=== PATIENT | female | born 1955 | race Caucasian/White ===

== ENCOUNTER → 2023-07-29 06:13 | Outpatient (REF) | payer BC, SELFPAY ==
[2023-07-29 09:49] LABS: INR 2.66; PT 28.3 Sec (11.4-14.6)
== END ==
LOC: HWLAB 06:13
PROVIDERS: ATTENDING PHYSICIAN Internal Medicine; FAMILY PHYSICIAN Internal Medicine Geriatric Medicine
DX: I48.91 Unspecified atrial fibrillation (principal)
CPT/HCPCS: 36415; 85610

== ENCOUNTER → 2023-08-26 06:12 | Outpatient (REF) | payer MEDICARE, OTHER, SELFPAY ==
[2023-08-26 10:16] LABS: INR 2.76; PT 29.1 Sec (11.4-14.6)
== END ==
LOC: HWLAB 06:12
PROVIDERS: ATTENDING PHYSICIAN Internal Medicine; FAMILY PHYSICIAN Internal Medicine Geriatric Medicine
DX: I48.91 Unspecified atrial fibrillation (principal)
CPT/HCPCS: 36415; 85610

== ENCOUNTER → 2023-09-27 06:07 | Outpatient (REF) | payer MEDICARE, OTHER, SELFPAY ==
[2023-09-27 10:29] LABS: INR 3.19; PT 32.6 Sec (11.4-14.6)
== END ==
LOC: HWLAB 06:07
PROVIDERS: ATTENDING PHYSICIAN Internal Medicine; FAMILY PHYSICIAN Internal Medicine Geriatric Medicine
DX: I48.91 Unspecified atrial fibrillation (principal)
CPT/HCPCS: 85610

== ENCOUNTER → 2023-10-04 06:06 | Outpatient (REF) | payer MEDICARE, OTHER, SELFPAY ==
[2023-10-04 10:15] LABS: INR 2.84; PT 29.7 Sec (11.4-14.6)
== END ==
LOC: HWLAB 06:06
PROVIDERS: ATTENDING PHYSICIAN Internal Medicine; FAMILY PHYSICIAN Internal Medicine Geriatric Medicine
DX: I48.91 Unspecified atrial fibrillation (principal)
CPT/HCPCS: 36415; 85610

== ENCOUNTER → 2023-11-01 06:03 | Outpatient (REF) | payer MEDICARE, OTHER, SELFPAY ==
[2023-11-01 09:11] LABS: INR 3.15; PT 32.3 Sec (11.4-14.6)
== END ==
LOC: HWLAB 06:03
PROVIDERS: ATTENDING PHYSICIAN Internal Medicine; FAMILY PHYSICIAN Internal Medicine Geriatric Medicine
DX: I48.91 Unspecified atrial fibrillation (principal)
CPT/HCPCS: 36415; 85610

== ENCOUNTER → 2023-11-08 06:05 | Outpatient (REF) | payer MEDICARE, OTHER, SELFPAY ==
[2023-11-08 10:11] LABS: INR 3.56; PT 35.6 Sec (11.4-14.6)
== END ==
LOC: HWLAB 06:05
PROVIDERS: ATTENDING PHYSICIAN Internal Medicine; FAMILY PHYSICIAN Internal Medicine Geriatric Medicine
DX: I48.91 Unspecified atrial fibrillation (principal)
CPT/HCPCS: 36415; 85610

== ENCOUNTER → 2023-11-15 06:11 | Outpatient (REF) | payer MEDICARE, OTHER, SELFPAY ==
[2023-11-15 10:24] LABS: INR 3.18; PT 32.5 Sec (11.4-14.6)
== END ==
LOC: HWLAB 06:11
PROVIDERS: ATTENDING PHYSICIAN Internal Medicine; FAMILY PHYSICIAN Internal Medicine Geriatric Medicine
DX: I48.91 Unspecified atrial fibrillation (principal)
CPT/HCPCS: 36415; 85610

== ENCOUNTER → 2023-11-22 06:21 | Outpatient (REF) | payer MEDICARE, OTHER, SELFPAY ==
[2023-11-22 09:57] LABS: INR 2.93; PT 30.5 Sec (11.4-14.6)
== END ==
LOC: HWLAB 06:21
PROVIDERS: ATTENDING PHYSICIAN Internal Medicine; FAMILY PHYSICIAN Internal Medicine Geriatric Medicine
DX: I48.91 Unspecified atrial fibrillation (principal)
CPT/HCPCS: 36415; 85610

== ENCOUNTER → 2023-12-03 06:09 | Outpatient (REF) | payer MEDICARE, OTHER, SELFPAY ==
[2023-12-03 10:45] LABS: INR 2.71; PT 28.7 Sec (11.4-14.6)
== END ==
LOC: HWLAB 06:09
PROVIDERS: ATTENDING PHYSICIAN Internal Medicine; FAMILY PHYSICIAN Internal Medicine Geriatric Medicine
DX: I48.91 Unspecified atrial fibrillation (principal)
CPT/HCPCS: 36415; 85610

== ENCOUNTER → 2023-12-10 06:07 | Outpatient (REF) | payer MEDICARE, OTHER, SELFPAY ==
[2023-12-10 09:40] LABS: INR 2.36; PT 25.7 Sec (11.4-14.6)
== END ==
LOC: HWLAB 06:07
PROVIDERS: ATTENDING PHYSICIAN Internal Medicine; FAMILY PHYSICIAN Internal Medicine Geriatric Medicine
DX: I48.91 Unspecified atrial fibrillation (principal)
CPT/HCPCS: 36415; 85610

== ENCOUNTER → 2024-01-08 06:12 | Outpatient (REF) | payer MEDICARE, OTHER, SELFPAY ==
[2024-01-08 11:09] LABS: INR 2.57; PT 27.9 Sec (11.4-14.6)
== END ==
LOC: HWLAB 06:12
PROVIDERS: ATTENDING PHYSICIAN Internal Medicine; FAMILY PHYSICIAN Internal Medicine Geriatric Medicine
DX: I48.91 Unspecified atrial fibrillation (principal)
CPT/HCPCS: 36415; 85610

== ENCOUNTER → 2024-01-10 08:22 | Outpatient (REF) | payer MEDICARE, OTHER, SELFPAY | LOC: RCS 08:22 | PROVIDERS: ATTENDING PHYSICIAN Internal Medicine; FAMILY PHYSICIAN Internal Medicine Geriatric Medicine | DX: Z98.890 Other specified postprocedural states (principal) | CPT/HCPCS: 93306 ==

== ENCOUNTER 2024-01-10 09:09 | Day surgery (SDC) | payer MEDICARE, OTHER, SELFPAY ==
--- NOTE | 2024-01-10 12:35 | ITS.CL.IMPLP ---
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
Implant Loop
Procedure Report:
Date of Procedure: January 10, 2024.
Procedure: Insertable Loop Recorder Implant.
Indication: Atrial fibrillation monitoring.
Performing physician: Pa Mendiola MD, [facility].
Implant: [employer]onic; Reveal LINQII; Model# [id number]; Serial# [id number].
Technique: The patient was prepped and draped in the usual fashion. A time-out was performed. No intravenous sedation was administered. Local anesthetic was applied to the left pre-pectoral subcutaneous tissue. Using the insertion kit an incision
was made left of the midline in the fourth intercostal space and the device was implanted subcutaneously and directed towards the nipple. Hemostasis was excellent. The skin was closed with steri-strips. The estimated blood loss was less than 1 ml.
There were no complications. No fluoroscopy. R waves measured 0.5 mV and P waves were visible.
Final Programming: Detections: Afib, tachy at 160 bpm, angelika at 30 bpm, pause at 3 sec.
Conclusion: Uncomplicated insertable loop implant.
Recommendation: Routine post-insertable loop care. The device is MRI conditional without a waiting period and up to 3 Cindy.
cc: Carlyle Dowling MD and Mike Swift NP.
== END 2024-01-10 11:45 | disposition home or self-care (01) ==
LOC: CATH 09:09
PROVIDERS: ATTENDING PHYSICIAN Internal Medicine Cardiovascular Disease; FAMILY PHYSICIAN Internal Medicine Geriatric Medicine; OTHER PHYSICIAN Internal Medicine
DX: Z09 Encounter for follow-up examination after completed treatment for conditions other than malignant neoplasm (principal); I48.91 Unspecified atrial fibrillation; Z79.82 Long term (current) use of aspirin; Z79.01 Long term (current) use of anticoagulants
CPT/HCPCS: 33285; 93306; C1764

== ENCOUNTER → 2024-02-05 06:03 | Outpatient (REF) | payer MEDICARE, OTHER, SELFPAY ==
[2024-02-05 09:50] LABS: INR 2.25; PT 25.1 Sec (11.4-14.6)
== END ==
LOC: HWLAB 06:03
PROVIDERS: ATTENDING PHYSICIAN Internal Medicine; FAMILY PHYSICIAN Internal Medicine Geriatric Medicine
DX: I48.91 Unspecified atrial fibrillation (principal)
CPT/HCPCS: 36415; 85610

== ENCOUNTER → 2024-03-04 06:10 | Outpatient (REF) | payer MEDICARE, OTHER, SELFPAY ==
[2024-03-04 09:40] LABS: PT 22.8 Sec (11.4-14.6)
== END ==
LOC: HWLAB 06:10
PROVIDERS: ATTENDING PHYSICIAN Internal Medicine; FAMILY PHYSICIAN Internal Medicine Geriatric Medicine
DX: I48.91 Unspecified atrial fibrillation (principal)
CPT/HCPCS: 36415; 85610

== ENCOUNTER → 2024-04-01 06:11 | Outpatient (REF) | payer MEDICARE, OTHER, SELFPAY ==
[2024-04-01 10:24] LABS: PT 23.8 Sec (11.4-14.6)
== END ==
LOC: HWLAB 06:11
PROVIDERS: ATTENDING PHYSICIAN Internal Medicine; FAMILY PHYSICIAN Internal Medicine Geriatric Medicine
DX: I48.91 Unspecified atrial fibrillation (principal)
CPT/HCPCS: 36415; 85610

== ENCOUNTER → 2024-04-29 06:13 | Outpatient (REF) | payer MEDICARE, OTHER, SELFPAY ==
[2024-04-29 09:28] LABS: INR 2.41; PT 26.7 Sec (11.4-14.6)
== END ==
LOC: HWLAB 06:13
PROVIDERS: ATTENDING PHYSICIAN Internal Medicine; FAMILY PHYSICIAN Internal Medicine Geriatric Medicine
DX: I48.91 Unspecified atrial fibrillation (principal)
CPT/HCPCS: 36415; 85610

== ENCOUNTER → 2024-05-29 06:18 | Outpatient (REF) | payer MEDICARE, OTHER, SELFPAY ==
[2024-05-29 10:01] LABS: INR 2.04; PT 23.2 Sec (11.4-14.6)
[2024-05-29 10:03] LABS: % Basophils 0.6 % (0-2); % Eosinophils 1.4 % (0-6); % Immature Granulocytes 0.2 % (0-0.5); % Lymphocytes 26.9 % (20.5-51.1); % Monocytes 9.2 % (1.7-9.3); % Neutrophils 61.7 % (42.2-75.2); Absolute Eosinophils 0.1 10^3/uL (0-0.7); Absolute Lymphocytes 1.3 10^3/uL (1.2-3.4); Absolute Monocytes 0.5 10^3/uL (0.1-0.6); Absolute Neutrophils 3.1 10^3/uL (1.4-6.5); Hematocrit 37.5 % (37.0-47.0); Hemoglobin 11.8 g/dL (12.0-16.0); Mean Corp Hgb Conc. 31.5 g/dL (33.0-37.0); Mean Corpuscular Hgb 30.3 pg (27.0-31.0); Mean Corpuscular Volume 96.4 fL (81.0-99.0); Mean Platelet Volume 11.2 fL (7.4-10.4); Nucleated Red Blood Cells % 0 %; Platelet Count 225 10^3/uL (130-400); Red Blood Cell Count 3.89 10^6/uL (4.20-5.40); Red Cell Dist. Width 13.3 % (11.5-14.5)
[2024-05-29 10:12] LABS: ALT (SGPT) 20 U/L (0-35); AST (SGOT) 22 U/L (14-36); Alkaline Phosphatase 51 U/L (38-126); Blood Urea Nitrogen 14 mg/dl (7-17); Calcium 8.8 mg/dl (8.4-10.2); Carbon Dioxide 27 mmol/L (22-30); Chloride 108 mmol/L (98-107); Glucose 105 mg/dl (70-99); HDL Cholesterol 55 mg/dl; LDL Cholesterol, Calculated 53 mg/dl; Potassium 4.2 mmol/L (3.5-5.1); Sodium 143 mmol/L (135-145); Total Bilirubin 0.5 mg/dl (0.2-1.3); Total Cholesterol 128 mg/dl (50-199); Total Protein 7.1 g/dl (6.3-8.2); Triglyceride 101 mg/dl (10-149); Very Low Density Lipoprotein 20 mg/dl (0-30); eGFR > 60.00
[2024-05-29 10:25] LABS: Vitamin D, 25-OH*** 14.2 ng/mL (30-80)
[2024-05-29 10:38] LABS: TSH Reflex To Free T4 2.06 uIU/ml (0.47-4.68)
[2024-05-29 10:49] LABS: Glycohemoglobin (HgbA1c) 5.7 % (4.0-5.6)
== END ==
LOC: HWLAB 06:18
PROVIDERS: ATTENDING PHYSICIAN Internal Medicine; FAMILY PHYSICIAN Nurse Practitioner Primary Care
DX: I48.91 Unspecified atrial fibrillation (principal); I25.10 Atherosclerotic heart disease of native coronary artery without angina pectoris; E78.2 Mixed hyperlipidemia; R73.01 Impaired fasting glucose; E04.1 Nontoxic single thyroid nodule; E55.9 Vitamin D deficiency, unspecified
CPT/HCPCS: 36415; 80053; 80061; 82306; 83036; 84443; 85025; 85610

== ENCOUNTER → 2024-06-19 13:17 | Outpatient (REF) | payer MEDICARE, OTHER, SELFPAY | LOC: HWWDC 13:17 | PROVIDERS: ATTENDING PHYSICIAN Nurse Practitioner Primary Care | DX: Z13.820 Encounter for screening for osteoporosis (principal); Z12.31 Encounter for screening mammogram for malignant neoplasm of breast; E04.1 Nontoxic single thyroid nodule; Z78.0 Asymptomatic menopausal state | CPT/HCPCS: 76536 ==

== ENCOUNTER → 2024-06-30 06:11 | Outpatient (REF) | payer MEDICARE, OTHER, SELFPAY ==
[2024-06-30 09:45] LABS: INR 1.67; PT 19.9 Sec (11.4-14.6)
[2024-06-30 09:53] LABS: Iron 67 ug/dl (37-170)
[2024-06-30 10:03] LABS: Percent Saturation 21 % (20-50); Total Iron Binding Capacity 317 ug/dl (265-497)
[2024-07-01 11:26] LABS: Ferritin 93.2 ng/ml (11.1-264.0)
== END ==
LOC: HWLAB 06:11
PROVIDERS: ATTENDING PHYSICIAN Internal Medicine; FAMILY PHYSICIAN Nurse Practitioner Primary Care
DX: I48.91 Unspecified atrial fibrillation (principal); D64.9 Anemia, unspecified
CPT/HCPCS: 36415; 82728; 83540; 83550; 85610

== ENCOUNTER → 2024-07-22 06:04 | Outpatient (REF) | payer MEDICARE, OTHER, SELFPAY ==
[2024-07-22 09:37] LABS: INR 1.41; PT 17.8 Sec (11.4-14.6)
== END ==
LOC: HWLAB 06:04
PROVIDERS: ATTENDING PHYSICIAN Internal Medicine; FAMILY PHYSICIAN Internal Medicine Geriatric Medicine
DX: I48.91 Unspecified atrial fibrillation (principal)
CPT/HCPCS: 36415; 85610

== ENCOUNTER → 2025-03-31 06:05 | Outpatient (REF) | payer MEDICARE, OTHER, SELFPAY ==
[2025-03-31 10:31] LABS: Hematocrit 36.5 % (37.0-47.0); Hemoglobin 11.9 g/dL (12.0-16.0); Mean Corp Hgb Conc. 32.6 g/dL (33.0-37.0); Mean Corpuscular Volume 92.9 fL (81.0-99.0); Nucleated Red Blood Cells % 0 %; Platelet Count 323 10^3/uL (130-400); Red Cell Dist. Width 12.7 % (11.5-14.5)
[2025-03-31 10:51] LABS: ALT (SGPT) 23 U/L (0-35); AST (SGOT) 22 U/L (14-36); Albumin 4.1 g/dl (3.5-5.0); Alkaline Phosphatase 77 U/L (38-126); Blood Urea Nitrogen 15 mg/dl (7-17); Calcium 9.6 mg/dl (8.4-10.2); Carbon Dioxide 25 mmol/L (22-30); Chloride 107 mmol/L (98-107); Glucose 113 mg/dl (70-99); HDL Cholesterol 58 mg/dl; LDL Cholesterol, Calculated 72 mg/dl; Potassium 4.6 mmol/L (3.5-5.1); Sodium 140 mmol/L (135-145); Total Protein 7.8 g/dl (6.3-8.2); Very Low Density Lipoprotein 25 mg/dl (0-30); eGFR > 60.00
[2025-03-31 11:13] LABS: TSH < 0.02 uIU/ml (0.47-4.68)
== END ==
LOC: HWLAB 06:05
PROVIDERS: ATTENDING PHYSICIAN Internal Medicine; FAMILY PHYSICIAN Internal Medicine Geriatric Medicine
DX: I25.810 Atherosclerosis of coronary artery bypass graft(s) without angina pectoris (principal); Z98.890 Other specified postprocedural states; I48.91 Unspecified atrial fibrillation; E78.2 Mixed hyperlipidemia; E66.3 Overweight; I10 Essential (primary) hypertension
CPT/HCPCS: 36415; 80053; 80061; 84443; 85025

== ENCOUNTER → 2025-04-16 09:24 | Outpatient (REF) | payer MEDICARE, OTHER, SELFPAY ==
[2025-04-16 12:58] LABS: Iron 61 ug/dl (37-170)
[2025-04-16 13:07] LABS: Total Iron Binding Capacity 321 ug/dl (265-497)
[2025-04-16 13:17] LABS: Free T3 7.45 pg/ml (2.77-5.27); Vitamin D, 25-OH*** 16.3 ng/mL (30-80)
[2025-04-16 13:30] LABS: TSH < 0.02 uIU/ml (0.47-4.68)
[2025-04-16 13:34] LABS: Ferritin 125.0 ng/ml (11.1-264.0)
[2025-04-16 13:45] LABS: Glycohemoglobin (HgbA1c) 5.5 % (4.0-5.9)
[2025-04-16 14:06] LABS: Folate 6.3 ng/ml (2.76-20); Vitamin B12 480 pg/ml (239-931)
[2025-04-18 01:44] LABS: Thyroglobulin Antibodies <1.5 IU/mL (0.0-4.0)
== END ==
LOC: HWLAB 09:24
PROVIDERS: ATTENDING PHYSICIAN Nurse Practitioner Primary Care
DX: E05.90 Thyrotoxicosis, unspecified without thyrotoxic crisis or storm (principal); R73.01 Impaired fasting glucose; D64.9 Anemia, unspecified; Z79.899 Other long term (current) drug therapy; E55.9 Vitamin D deficiency, unspecified
CPT/HCPCS: 36415; 82306; 82607; 82728; 82746; 83036; 83540; 83550; 84439; 84443; 84481; 86376; 86800

== ENCOUNTER → 2025-05-21 12:50 | Outpatient (REF) | payer MEDICARE, OTHER, SELFPAY | LOC: RAD 12:50 | PROVIDERS: ATTENDING PHYSICIAN Nurse Practitioner Primary Care | DX: E04.1 Nontoxic single thyroid nodule (principal) | CPT/HCPCS: 76536 ==